=== PATIENT | male | born 1990 | race Asian ===

== ENCOUNTER 2017-06-23 19:35 | Emergency (ER) | payer BC ==
[~2017-06-23] VITALS: Ht 193 cm; Wt 111.1 kg
== END 2017-06-23 20:16 | disposition home or self-care (01) ==
LOC: ED 19:35
PROC: 0HQEXZZ Repair Left Lower Arm Skin, External Approach (ICD-10-PCS; principal; 2017-06-23)
DX: S51.812A Laceration without foreign body of left forearm, initial encounter (principal); S50.812A Abrasion of left forearm, initial encounter; W19.XXXA Unspecified fall, initial encounter; Y92.098 Other place in other non-institutional residence as the place of occurrence of the external cause
CPT/HCPCS: 99283; J7040